=== PATIENT | male | born 1960 | race Caucasian/White ===

== ENCOUNTER 2019-07-07 06:40 | Day surgery (SDC) | payer OTHER ==
[~2019-07-07] VITALS: Ht 175.3 cm; Wt 95.3 kg
[2019-07-07] MEDS ORDERED: MIDAZOLAM 2 MG/2 ML VIAL ONE (07:31)
[2019-07-07] MEDS ORDERED: fentaNYL 0.05 MG/ML VIAL ONE (07:31)
[2019-07-07] MEDS ORDERED: LIDOCAINE 2% 100 MG/5 ML UJET TP ONE (07:32)
[2019-07-07] MEDS ORDERED: fentaNYL 0.05 MG/ML VIAL IVP ONE (08:05)
[2019-07-07] MEDS ORDERED: MIDAZOLAM 2 MG/2 ML VIAL IVP ONE (08:05)
== END 2019-07-07 08:45 | disposition home or self-care (01) ==
LOC: MDS 06:40 → MMU 06:48 → MDS 08:45
PROVIDERS: ATTEND Internal Medicine Gastroenterology
DX: R19.5 Other fecal abnormalities (principal); K57.30 Diverticulosis of large intestine without perforation or abscess without bleeding; E11.9 Type 2 diabetes mellitus without complications; E66.09 Other obesity due to excess calories; Z68.29 Body mass index [BMI] 29.0-29.9, adult; Z79.84 Long term (current) use of oral hypoglycemic drugs; Z88.0 Allergy status to penicillin; Z68.31 Body mass index [BMI] 31.0-31.9, adult
CPT/HCPCS: 45378; J2250; J3010